=== PATIENT | male | born 1945 | race Caucasian/White ===

== ENCOUNTER 2017-07-28 07:50 | Day surgery (SDC) | payer OTHER, MEDICARE ==
[2017-07-28] MEDS ORDERED: MIDAZOLAM HCL 2 MG/2 ML SINGLE DOSE VIAL ONE ×2 (09:06)
--- NOTE | 2017-07-28 09:24 | OP ---
Operative Note - Note: Operative Date: 07/28/17 Pre-Operative Diagnosis: Right kidney stone Operation: Right ESWL Findings: 8 mm low renal pole Right Surgeon: Fernando Grullon Anesthesia: Fractional
[2017-07-28] MEDS ORDERED: KETOROLAC TROMETHAMINE 30 MG/1 ML VIAL ONE (09:25)
[2017-07-28] MEDS ORDERED: DEXAMETHASONE SOD PHOSPHATE 4 MG/1 ML VIAL ONE (09:25)
[2017-07-28] MEDS ORDERED: oxyCODONE HCL 5 MG TABLET PO PRN (09:47)
[2017-07-28] MEDS ORDERED: PROMETHAZINE HCL 25 MG/1 ML VIAL IVPB PRN (09:47)
[2017-07-28] MEDS ORDERED: ONDANSETRON 4 MG/2 ML VIAL IVPUSH PRN (09:47)
[2017-07-28] MEDS ORDERED: LACTATED RINGERS SOLUTION 1,000 ML IV SCH (10:00)
[2017-07-28 10:33] VITALS: TEMP 98.6
[2017-07-28 12:39] VITALS: BP 128/74; PULSE 55
--- NOTE | 2017-07-28 21:16 | OP ---
DATE OF OPERATION: 07/28/2017 PREOPERATIVE DIAGNOSIS: Right renal stone. POSTOPERATIVE DIAGNOSIS: Right renal stone. PROCEDURE: Right extracorporeal shock wave lithotripsy. ATTENDING: Mahsa Ambrose MD ANESTHESIA: Fractional. DESCRIPTION OF OPERATION: Patient was brought in the operating room, placed in supine position on the operating room table. Ultrasonography and fluoroscopy were performed. An 8-mm right lower pole stone was identified. At this point, fractional anesthesia was administered as was preoperative antibiotics. Extracorporeal shock wave lithotripsy was then started; 2500 impulses at 20 joules of power were administered to the stone. The patient was noted to have excellent fragmentation of the stone under real-time ultrasonography and fluoroscopy. There were no complications noted. The patient tolerated the procedure very well. MAHSA AMBROSE M.D. /[id number]
== END 2017-07-28 12:30 | disposition home or self-care (01) ==
LOC: JASU-SURG 07:50
PROVIDERS: ATTEND Urology
PROC: 0TF3XZZ Fragmentation in Right Kidney Pelvis, External Approach (ICD-10-PCS; principal; 2017-07-28 09:30)
DX: N20.0 Calculus of kidney (principal)
CPT/HCPCS: 94760

== ENCOUNTER 2017-08-11 08:48 | Day surgery (SDC) | payer OTHER, MEDICARE | END 2017-08-11 12:12 | disposition home or self-care (01) | LOC: JASU-SURG 08:48 | PROC: 0TF4XZZ Fragmentation in Left Kidney Pelvis, External Approach (ICD-10-PCS; principal; 2017-08-11) | DX: N20.0 Calculus of kidney (principal) ==

== ENCOUNTER 2018-11-14 10:50 | Emergency (ER) | payer OTHER, MEDICARE ==
[2018-11-14 10:57] VITALS: BMI 27.8
--- NOTE | 2018-11-14 11:11 | PDOC ---
History of Present Illness - General Chief Complaint: Chest Pain Stated Complaint: CHEST PAIN Time Seen by Provider: 11/14/18 11:10 History Source: Patient Exam Limitations: No Limitations, Language Barrier - History of Present Illness Initial Comments: Demetrius Boyer is a 73 yo M w a pmh of HTN, HLD, BPH s/p TURP, b/l renal stones s/p multiple ESWL procedures who presents to the [facility] ER via private auto with the CC of chest pain for the past 2 days. The patient states the chest pain is left sided and rated 8/10 in intensity. The pain radiates down his left arm and the pain is worsened by physical activity. The patient states the chest pain feels like a heavy and sharp sensation in quality. The pain has stayed relatively constant for the past 2 days. Patient had a cardiac cath in 2011 which showed non-occlusive CAD at that time. Patient states he had a stress test [address] Vela and it was normal. Patient states the pain is also reproducible with palpation or when he moves his left arm vigorously. Patient denies any nausea, vomiting, or diaphoresis. Denies radiation to back. The patient denies recent travel/surgeries/immobility, lower extremity edema, calf pain or tenderness, tobacco use, hormone use, personal or family history of thrombosis. Denies fevers, chills, or infections. Denies shortness of breath , difficulty breathing, or pain worsened upon deep inspiration. PCP: Antony Schneider Elevator Service Mechanic: Marisol Black Urology: Yadi PSH: TURP, ESWL Social Hx: Former smoker, quit 11 years ago Allergies: NKA, NKDA Past History - Past Medical History Allergies/Adverse Reactions: Allergies Allergy/AdvReac Type Severity Reaction Status Date / Time No Known Drug Allergies Allergy Verified 11/14/18 10:51 Home Medications: Ambulatory Orders Amlodipine Besylate 5 mg PO DAILY 03/03/15 Anemia: No Asthma: No Cancer: No Cardiac Disorders: No CVA: No COPD: No CHF: No Dementia: No Diabetes: No GI Disorders: No Disorders: Yes (ENLARGED PROSTATE,STONES) HTN: Yes Hypercholesterolemia: No Liver Disease: No Seizures: No Thyroid Disease: No - Surgical History Abdominal Surgery: Yes (HERNIA REPAIR) Appendectomy: No Cardiac Surgery: No Cholecystectomy: No Lung Surgery: No Neurologic Surgery: No Orthopedic Surgery: No - Suicide/Smoking/Psychosocial Hx Smoking History: Former smoker Have you smoked in the past 12 months: No If you are a former smoker, when did you quit?: 11YRS AGO Information on smoking cessation initiated: No Hx Alcohol Use: No Drug/Substance Use Hx: No Substance Use Type: Alcohol Review of Systems - Review of Systems Able to Perform ROS?: Yes Comments:: CONSTITUTIONAL: Absent: fever, chills, diaphoresis, generalized weakness, malaise, loss of appetite HEENT: Absent: rhinorrhea, nasal congestion, throat pain, throat swelling, difficulty swallowing, mouth swelling, ear pain, eye pain, visual Changes CARDIOVASCULAR: Present: Chest pain Absent: syncope, palpitations, irregular heart rate, lightheadedness, peripheral edema RESPIRATORY: Absent: cough, shortness of breath, dyspnea with exertion, orthopnea, wheezing, stridor, hemoptysis GASTROINTESTINAL: Absent: abdominal pain, abdominal distension, nausea, vomiting, diarrhea, constipation, melena, hematochezia GENITOURINARY: Present: Hesitancy Absent: dysuria, frequency, urgency, hematuria, flank pain, genital pain MUSCULOSKELETAL: Present: Arthralgia Absent: myalgia, joint swelling SKIN: Absent: rash, itching, pallor HEMATOLOGIC/IMMUNOLOGIC: Absent: easy bleeding, easy bruising, lymphadenopathy, frequent infections ENDOCRINE: Absent: unexplained weight gain, unexplained weight loss, heat intolerance, cold intolerance NEUROLOGIC: Absent: headache, focal weakness or paresthesias, dizziness, unsteady gait, seizure, mental status changes, bladder or bowel incontinence PSYCHIATRIC: Absent: anxiety, depression, suicidal or homicidal ideation, hallucinations. *Physical Exam - Vital Signs Last Vital Signs Temp Pulse Resp BP Pulse Ox 98.3 F 66 16 110/63 100 11/14/18 10:51 11/14/18 10:51 11/14/18 10:51 11/14/18 10:51 11/14/18 10:51 - Physical Exam Comments: GENERAL: Well developed, well nourished. Awake and alert. No acute distress. HEENT: Normocephalic, atraumatic. PERRLA, EOMI. No conjunctival pallor. Sclera are non- icteric. Moist mucous membranes. Oropharynx is clear. NECK: Supple. Full ROM. No JVD. No lymphadenopathy. CARDIOVASCULAR: Regular rate and rhythm. No murmurs, rubs, or gallops. Distal pulses are 2+ and symmetric. PULMONARY: No evidence of respiratory distress. Lungs clear to auscultation bilaterally. No wheezing, rales or rhonchi. ABDOMINAL: Soft. Non-tender. Non-distended. No rebound or guarding. No organomegaly. Normoactive bowel sounds. MUSCULOSKELETAL There is bony tenderness at the left costochondral junction. There is left chest pain upon palpation. Normal range of motion at all joints. No bony deformities. No CVA tenderness. EXTREMITIES: No cyanosis. No clubbing. No edema. No calf tenderness. SKIN: Warm and dry. Normal capillary refill. No rashes. No jaundice. NEUROLOGICAL: Alert, awake, appropriate. Cranial nerves 2-12 intact. No deficits to light touch in face, upper extremities and lower extremities. No motor deficits in the in face, upper extremities and lower extremities. Normal speech. Gait is normal without ataxia. PSYCHIATRIC: Cooperative. Good eye contact. Appropriate mood and affect. Heart Score/ECG Review - History History: Moderately suspicious - Electrocardiogram EKG: Normal - Age Age: >/= 65 - Risk Factors Risk Factors Heart Score: Yes Hx Hypercholesterolemia, Yes Hx Hypertension, Yes Smoking History, Yes Positive family hx of cardiac disease Based on the list above the patient has:: >/=3 risk factors or Hx atherosclerotic disease - Troponin Troponin: </= normal limit - Score Heart Score - Total: 5 - ECG Intrepretation Rhythm: Regular Rhythm - [place]: Normal - P and CT Prominent R with upright T in V1 (true posterior FL): No Delta Wave(s) Present: No WPW: No - QRS Increased Voltage: Precordial Leads Poor R Wave Progression: No Q Wave Present: No - ST and T Early Repolarization: No Non Specific ST-T Wave changes: No Flattened T Waves: No Prolonged Q-T Interval: No - ECG Impressions Normal ECG: Yes Non-specific ST Elevation: No Ischemic Changes: No Bradycardia: No Torsades huseyin Pointes: No WPW: No ED Treatment Course - LABORATORY CBC & Chemistry Diagram: 11/14/18 11:37 11/14/18 11:37 - RADIOLOGY Radiograph Interpretation: CXR: Clear lungs, well aerated, an acute process is not seen Impression: No acute pathology Medical Decision Making - Medical Decision Making Demetrius Boyer is a 73 yo M w a pmh of HTN, HLD, BPH s/p TURP, b/l renal stones s/p multiple ESWL procedures who presents to the [facility] ER via private auto with the CC of chest pain for the past 2 days. The patient states the chest pain is left sided and rated 8/10 in intensity. The pain radiates down his left arm and the pain is worsened by physical activity. The patient states the chest pain feels like a heavy and sharp sensation in quality. The pain has stayed relatively constant for the past 2 days. Patient had a cardiac cath in 2011 which showed non-occlusive CAD at that time. Patient states the pain is also reproducible with palpation or when he moves his left arm vigorously. Patient denies any nausea, vomiting, or diaphoresis. Denies radiation to back. The patient denies recent travel/surgeries/immobility, lower extremity edema, calf pain or tenderness, tobacco use, hormone use, personal or family history of thrombosis. Denies fevers, chills, or infections. Denies shortness of breath , difficulty breathing, or pain worsened upon deep inspiration. Vital Signs Temp Pulse Resp BP Pulse Ox 98.3 F 66 16 110/63 100 11/14/18 10:51 11/14/18 10:51 11/14/18 10:51 11/14/18 10:51 11/14/18 10:51 DDx IBNLT: ACS/FL, arrhythmia, angina, pneumothorax, PNA, MSK chest pain/ costochondritis, electrolyte/metabolic disturbance, UTI/Pylo - No suspicion for dissection with normal BP and no radiation to back - Very low suspicion for PE as pain is not pleuritic, no tachypnea or dyspnea, wells score zero, no tachycardia, and clinical situation doesn't support PE. Plan: EKG, labs, urine, CXR, analgesia, cardio consult, re-assess. EKG: NS rate of 64, narrow complexes, normal axis, mild hypertrophy in precordial leads less than 35, no ST elevations or depression, no abnormal TWI, no Q waves, CT-160, QTc - 404. Labs: Normal, no acute abnormalities. 1st trop normal. 2nd Troponin: Negative Urine: Normal, no signs of infection or acute pathology. CXR: No acute pathology. Cardio consult: Spoke with Dr. Elias who is covering for Dr. Black who advised us that this patient's chest pain syndrome does not sound like ACS considering the pain has been constant for 2 days, patient had a recent negative stress test, and considering EKG is normal and 1st troponin is negative the patient can have this chest pain workup performed as an outpatient at Dr. Black's office on Friday if the second troponin is also normal. Re-assessment: Patient feels well in the emergency room and his pain has stopped after NSAID administration. Cardiac - Dr. Elias - came and evaluated the patient. They agree this chest pain is atypical and likely MSK in origin. Plan is to get a 2nd troponin and send home if negative. Disposition: Home with PCP and cardio follow up. *DC/Admit/Observation/Transfer Diagnosis at time of Disposition: Atypical chest pain - Discharge Dispostion Disposition: HOME Condition at time of disposition: Improved Decision to Admit order: No - Referrals Referrals: Antony Schneider MD [Primary Care Provider] - Marisol Black MD [Staff Physician] - Raulito Elias MD [Staff Physician] - - Patient Instructions Printed Discharge Instructions: DI for Atypical Chest Pain, DI for Chest Pain Additional Instructions: You came into the ER with chest pain. We looked at your blood, did a chest x- ray and an EKG and determined that you are not having a heart attack. Drink plenty of fluids. Take anti-inflammatory medications like advil, motrin, ibuprofen, alleve, or naproxen and tylenol as needed for pain control. Please make sure to call up your automatic blocker today or tomorrow and schedule a follow up appointment for Friday or early this week. Please also make sure to call up your primary care doctor and schedule a follow up appointment. Come back to the ER immediately if your pain worsens, you start vomiting, start sweating profusely, or have any other new or worsening concerns. Thank you for coming to the [facility] ER. We hope you feel better soon! Print Language: KHMER - Post Discharge Activity
[2018-11-14] MEDS ORDERED: SODIUM CHLORIDE 1,000 ML IV STA (11:25)
[2018-11-14 11:58] LABS: BASO % 0.4 % (0-2.0); EOS % 2.1 % (0-4.5); HEMATOCRIT 44.7 % (35.4-49); HEMOGLOBIN 15.3 GM/dL (11.7-16.9); LYMPH % 34.1 % (8-40); MCH 30.3 pg (25.7-33.7); MCHC 34.3 g/dl (32.0-35.9); MEAN CELL VOLUME 88.3 fl (80-96); MEAN PLT VOLUME 8.8 fl (7.5-11.1); MONO % 8.8 % (3.8-10.2); NEUT % 54.6 % (42.8-82.8); PLATELET COUNT 250 K/MM3 (134-434); RBC 5.06 M/mm3 (4.00-5.60); RDW 15.1 % (11.9-15.9)
--- NOTE | 2018-11-14 12:00 | PDOC ---
Documentation entered by Sarah Beth Lewis SCRIBE, acting as scribe for April Saini DO. April Saini, DO: This documentation has been prepared by the Debbie mace Mackenzie, SCRIBE, under my direction and personally reviewed by me in its entirety. I confirm that the documentation accurately reflects all work , treatment, procedures, and medical decision making performed by me. Attending Attestation - Resident Resident Name: Hernandez Torres - ED Attending Attestation I have performed the following: I have examined & evaluated the patient, The case was reviewed & discussed with the resident, I agree w/resident's findings & plan - HPI HPI: The patient is a 73 year old male, with a significant PMH of BPH s/p TURP, HLD, and HTN, who presents to the emergency department with 2 days of left sided chest pain. Patient states he was exercising 2 days ago when he felt the discomfort. He states it is similar to the muscular aches he gets after working out however what prompted him to come in today was that his left breast was slightly swollen. Patient endorses that the pain radiates down his left arm. Patient states his last stress test was [address] Vela and normal. The patient denies shortness of breath, headache and dizziness. Denies fever, chills, nausea, vomiting, diarrhea and constipation. Denies dysuria, frequency, urgency and hematuria. Allergies: NKDA Surgical history: multiple ESWL procedures Social history: Quit smoking 11 years ago PCP: Antony Schneider Triage Technician: Katelyn Vela 11/14/18 11:39 - Physicial Exam PE: Constitutional: Awake, alert, oriented. No acute distress. Head: Normocephalic. Atraumatic Eyes: PERRL. EOMI. Conjunctivae are not pale. ENT: Mucous membranes are moist and intact. Posterior pharynx without exudates or erythema. Uvula midline. Neck: Supple. Full ROM. No lymphadenopathy. Cardiovascular: (+)Reproducible anterior chest wall discomfort. Regular rate. Regular rhythm. S1, S2 regular. Distal pulses are 2+ and symmetric. Pulmonary/Chest:No evidence of respiratory distress. Clear to auscultation bilaterally No wheezing, rales or rhonchi. Abdominal: Soft and non-distended. There is no tenderness. No rebound, guarding or rigidity. No organomegaly. No palpable masses. Good bowel sounds. Back: No CVA tenderness. Musculoskeletal: No edema. No cyanosis. No clubbing. Full range of motion in all extremities. No calf tenderness. Radial/pedal pulses are intact and 2+ bilaterally Skin: Skin is warm and dry. No petechiae. No purpura. Neurological: Alert and oriented to person, place, and time. Cranial nerves II -XII are grossly intact. Normal speech. Strength is grossly symmetric. No sensory deficits. Psychiatric: Good eye contact. Normal interaction, affect and behavior. 11/14/18 11:39 - Medical Decision Making 11/14/18 11:43 I, Dr. April Saini, DO, attest that this document has been prepared under my direction and personally reviewed by me in its entirety. I further attest, that it accurately reflects all work, treatment, procedures and medical decision -making performed by me. 11/14/18 11:43 a/p: 73yo male with hx of htn, hld with 2 days of L sided cp that radiates to his L arm -worse with exercise and movement -worse with palpation of the chest wall -hx of nonocclusive cad on cath 2011 cards - dr brice, last saw for a stress test 4m ago, which was normal pt states quit smoking 11 yr ago -will send labs, ekg, cxr -will discuss with dr. brice -will monitor on tele 11/14/18 12:22 cbc reviewed and stable pending chem and trop 11/14/18 12:29 trop neg cxr clear call placed to dr. brice 11/14/18 12:42 resident discussed the case with Dr. Elias who recommends outpt cards eval after 2nd neg trop agrees with the current plan 11/14/18 13:26 the patient has been seen by dr. elias 11/14/18 15:36 repeat trop negative stable for dc to home Heart Score/ECG Review - ECG Intrepretation Comment:: 11/14/18 11:59 sinus at 64, nl axis, nl interval, no acute st/t wave finding
[2018-11-14 12:13] LABS: INR 1.03 (0.83-1.09); PROTHROMBIN TIME (PATIENT) 12.1 SEC (9.7-13.0)
[2018-11-14 12:28] LABS: ALBUMIN 3.8 g/dl (3.4-5.0); BILIRUBIN,TOTAL 0.3 mg/dL (0.2-1); BLOOD UREA NITROGEN 15.8 mg/dL (7-18); CALCIUM 9.1 mg/dL (8.5-10.1); CREATININE 0.9 mg/dL (0.55-1.3); MAGNESIUM 2.3 mg/dL (1.8-2.4); POTASSIUM 3.9 mmol/L (3.5-5.1); TOT PROT 6.8 g/dl (6.4-8.2)
[2018-11-14] MEDS ORDERED: ASPIRIN 81 MG CHEWABLE TABLETS PO ONE (12:29)
[2018-11-14] MEDS ORDERED: ASPIRIN 81 MG CHEWABLE TABLETS ONE (12:39)
--- NOTE | 2018-11-14 12:40 | CON.CARD ---
Consult Consult Specialty:: Cardiology Referred by:: Emergency Medicine Reason for Consultation:: Chest pain - History of Present Illness Chief Complaint: Chest pain History of Present Illness: The patient is a 73 year old male, with a significant PMH of BPH s/p TURP, HLD, and HTN, who presents to the emergency department with 2 days of reproducible left-sided sharp chest pain. Patient states he was exercising 2 days ago when he felt the discomfort. He states it is similar to the muscular aches he gets after working out; however, what prompted him to come in today was that his left breast was slightly swollen. Patient endorses that the pain radiates down his left arm, worse with palpation, turning torso from side to side and lifting arms above head. Patient states his last stress test was [address] Vela and normal. The patient denies shortness of breath, headache, dizziness, true syncope, palpitations, orthopnea, PND or LE edema. Denies fever, chills, nausea, vomiting, diarrhea and constipation. Denies dysuria, frequency, urgency and hematuria. Allergies: NKDA Surgical history: multiple ESWL procedures Social history: Quit smoking 11 years ago PCP: Antony Schneider Weekday Babysitter: Katelyn Vela - History Source History Provided By: Patient Limitations to Obtaining History: No Limitations - Alcohol/Substance Use Hx Alcohol Use: No - Smoking History Smoking history: Former smoker Have you smoked in the past 12 months: No If you are a former smoker, when did you quit?: 11YRS AGO Home Medications - Allergies Allergies/Adverse Reactions: Allergies Allergy/AdvReac Type Severity Reaction Status Date / Time No Known Drug Allergies Allergy Verified 11/14/18 10:51 - Home Medications Home Medications: Ambulatory Orders Amlodipine Besylate 5 mg PO DAILY 03/03/15 Review of Systems - Review of Systems Cardiovascular: reports: Chest Pain Vital Signs: Vital Signs Temperature 98.1 F 11/14/18 10:57 Pulse Rate 65 11/14/18 10:57 Respiratory Rate 11 11/14/18 10:57 Blood Pressure 109/63 11/14/18 10:57 O2 Sat by Pulse Oximetry (%) 97 11/14/18 10:57 Constitutional: Yes: No Distress, Calm Neck: Yes: Supple Respiratory: Yes: Regular, CTA Bilaterally, Other (Left chest wall tenderness) Gastrointestinal: Yes: Normal Bowel Sounds, Soft Cardiovascular: Yes: Regular Rate and Rhythm JVD: No Carotid Bruit: No Heart Sounds: Yes: S1, S2 Edema: No - Other Data Labs, Other Data: CBC, BMP 11/14/18 11:37 11/14/18 11:37 INR, PTT INR 1.03 (0.83-1.09) 11/14/18 11:37 Troponin, BNP 11/14/18 11/14/18 11:37 11:37 Troponin I < 0.02 B-Natriuretic Peptide 10.0 Troponin, BNP 11/14/18 11/14/18 11:37 11:37 Troponin I < 0.02 B-Natriuretic Peptide 10.0 NSR PAC Ejection Fraction %: LVEF > or = 40 % Imaging - Results Chest X-ray: Report Reviewed (NAD) Problem List - Problems (1) Hypertension Code(s): I10 - ESSENTIAL (PRIMARY) HYPERTENSION Qualifiers: Hypertension type: essential hypertension Qualified Code(s): I10 - Essential (primary) hypertension (2) Atypical chest pain Code(s): R07.89 - OTHER CHEST PAIN Assessment/Plan 1. Atypical chest wall pain post exercise c/w musculoskeletal etiology 2. HTN P:1. Topical analgesia as needed with Dimit[place] cream 2. August d/c home with f/u with Dr. Black as outpatient 3. Continue Norvasc 4. Thank you for consultative opportunity
[2018-11-14] MEDS ORDERED: IBUPROFEN 400 MG TABLET (FP) PO ONE ×2 (13:07→13:34)
[2018-11-14 13:08] LABS: PH,URINE 5.5 (5.0-8.0); URINE APPEARANCE CLEAR; URINE BILIRUBIN NEGATIVE (NEGATIVE); URINE COLOR YELLOW; URINE GLUCOSE (UA) NEGATIVE (NEGATIVE); URINE KETONE NEGATIVE (NEGATIVE); URINE LEUK ESTERASE NEGATIVE (NEGATIVE); URINE NITRITE NEGATIVE (NEGATIVE); URINE PROTEIN NEGATIVE (NEGATIVE); URINE UROBILINOGEN 0.2 mg/dL (0.2-1.0)
[2018-11-14] MEDS ORDERED: ACETAMINOPHEN 325 MG TABLET (FP) PO ONE (13:08)
[2018-11-14] MEDS ORDERED: ACETAMINOPHEN 325 MG TABLET (FP) ONE (13:34)
[2018-11-14 15:36] VITALS: BP 125/76; PULSE 45; TEMP 97.3
--- NOTE | 2018-11-15 10:37 | EKG ---
Test Reason : Blood Pressure : / mmHG Vent. Rate : 064 BPM Atrial Rate : 064 BPM P-R Int : 160 ms QRS Dur : 114 ms QT Int : 392 ms P-R-T Axes : 051 017 062 degrees QTc Int : 404 ms SINUS RHYTHM WITH PREMATURE ATRIAL COMPLEXES IN A PATTERN OF BIGEMINY OTHERWISE NORMAL ECG WHEN COMPARED WITH ECG OF 19-JUL-2008 17:42, PREMATURE ATRIAL COMPLEXES ARE NOW PRESENT Confirmed by SARY MORGAN MD ([id number]) on 11/15/2018 10:36:50 AM Referred By: Confirmed By:SARY MORGAN MD
== END 2018-11-14 15:35 | disposition home or self-care (01) ==
LOC: JER 10:50
PROC: 3E0337Z Introduction of Electrolytic and Water Balance Substance into Peripheral Vein, Percutaneous Approach (ICD-10-PCS; principal; 2018-11-14)
DX: R07.89 Other chest pain (principal); I10 Essential (primary) hypertension
CPT/HCPCS: 36415; 71046-TC-FY; 80053; 81003; 82550; 82553; 83735; 83880; 84484; 85025; 85610; 87086; 93005; 93010; 96360; 99284-25; J7030

== ENCOUNTER 2018-11-21 09:52 | Emergency (ER) | payer OTHER, MEDICARE ==
[2018-11-21 09:59] VITALS: BMI 27.6
[2018-11-21 10:30] VITALS: BP 115/68; PULSE 66; TEMP 98.8
--- NOTE | 2018-11-21 10:36 | PDOC ---
History of Present Illness - General Chief Complaint: Hematuria Stated Complaint: HEMATURIA Time Seen by Provider: 11/21/18 10:34 History Source: Patient Exam Limitations: No Limitations - History of Present Illness Initial Comments: Pt is a 73 yo M, with PMH of HTN, HLD, BPH (s/p TURP), and b/l renal stones (s/ p ESWL), who presents with painless hematuria that has been consistent over the past few weeks. Pt had a renal US done 11/05 which showed no hydronephrosis and no masses in the bladder. Pt states he saw Dr. Grullon ([facility]) last week and was told per pt "everything was fine". Pt continues to deny pain, dysuria, or frequency, but is bothered by the bleeding. Pt denies any recent fevers/chills, headache, vision changes, syncope, chest pain, palpitations, SOB, nausea/ vomiting, abdominal pain, diarrhea/constipation, or leg swelling. Allergies: NKDA PCP: Wyatt SWANSON: Yadi Social: Pt denies any cigarette, alcohol, or drug use. Pt denies any recent travel or sick contacts. Surgical: , as above. Family: no relevant history. 11/21/18 12:44 Past History - Travel Traveled outside of the country in the last 30 days: No Close contact w/someone who was outside of country & ill: No - Past Medical History Allergies/Adverse Reactions: Allergies Allergy/AdvReac Type Severity Reaction Status Date / Time No Known Drug Allergies Allergy Verified 11/21/18 09:59 Home Medications: Ambulatory Orders Amlodipine Besylate 5 mg PO DAILY 03/03/15 Anemia: No Asthma: No Cancer: No Cardiac Disorders: No CVA: No COPD: No CHF: No Dementia: No Diabetes: No GI Disorders: No Disorders: Yes (ENLARGED PROSTATE,STONES) HTN: Yes Hypercholesterolemia: Yes Liver Disease: No Seizures: No Thyroid Disease: No - Surgical History Abdominal Surgery: Yes (HERNIA REPAIR) Appendectomy: No Cardiac Surgery: No Cholecystectomy: No Lung Surgery: No Neurologic Surgery: No Orthopedic Surgery: No - Suicide/Smoking/Psychosocial Hx Smoking History: Never smoked Have you smoked in the past 12 months: No If you are a former smoker, when did you quit?: 11YRS AGO Hx Alcohol Use: No Drug/Substance Use Hx: No Substance Use Type: Alcohol Abd/GI Specific PMHX - Complaint Specific PMHX Colitis: No Diverticulitis: No Gall Bladder Disease: No GERD: No Hepatitis: No Irritable Bowel Synd (IBS): No Pancreatitis: No GI Ulcer Disease: No Review of Systems - Review of Systems Able to Perform ROS?: Yes Is the patient limited Mexican proficient: No Constitutional: Yes: Weight Stable. No: Chills, Diaphoresis, Fever, Malaise, Weakness HEENTM: No: Blurred Vision, Double Vision, Nose Congestion, Throat Pain, Throat Swelling, Difficulty Swallowing Respiratory: No: Cough, Orthopnea, Shortness of Breath Cardiac (ROS): No: Chest Pain, Edema, Irregular Heart Rate, Lightheadedness, Palpitations, Syncope, Chest Tightness ABD/GI: No: Constipated, Diarrhea, Nausea, Poor Appetite, Poor Fluid Intake, Vomiting, Abdominal cramping : Yes: See HPI, Hematuria. No: Burning, Dysuria, Discharge, Frequency, Flank Pain, Incontinence, Pain, Urgency, Testicular Pain Musculoskeletal: No: Back Pain, Joint Pain Integumentary: No: Rash Neurological: No: Headache, Numbness, Weakness, Unsteady Gait, Dizziness Psychiatric: No: Sleep Pattern Change, Change in Appetite Endocrine: No: Increased Urine, Change in Weight Hematologic/Lymphatic: No: Anemia, Blood Clots, Easy Bleeding, Easy Bruising *Physical Exam - Vital Signs Last Vital Signs Temp Pulse Resp BP Pulse Ox 98.8 F 66 18 115/68 96 11/21/18 10:29 11/21/18 10:29 11/21/18 09:56 11/21/18 10:29 11/21/18 10:29 - Physical Exam Comments: Vitals stable, pt afebrile. Pt in NAD, normal body habitus. Pt alert and oriented x3. case maker generally intact, muscular strength and sensation intact. No midline spinal tenderness, step-offs, or crepitus. Head normocephalic, atraumatic. Eyes PERRLA, EOMI. Oropharynx without erythema or exudates, no LAD b/l. No nasal congestion, hearing intact. Clear heart sounds, S1/S2, no JVD, b/l pedal edema, or heart murmur. Clear lung sounds, no respiratory distress, wheezes, crackles, or accessory muscle use. No abdominal or CVA tenderness to palpation, no rebound, no guarding. Abdomen soft, non-distended, and with normoactive bowel sounds. Skin without jaundice or rash. 11/21/18 12:56 ED Treatment Course - LABORATORY CBC & Chemistry Diagram: 11/21/18 10:55 11/21/18 10:55 Medical Decision Making - Medical Decision Making Pt was seen at bedside, also will be seen by attending Dr. Lepe. Pt presenting with painless hematuria that has been unchanged for the past few weeks. Will evaluate with labs to check for renal function, anemia, urine infection, and will do bedside US to look for hydronephrosis or bladder masses. Pt will need outpatient follow-up with urology for further evaluation of bleeding (likely cystoscopy). Pt denies any pain control at this time. Will continue to reassess pt and monitor for symptomatic improvement. Urine at bedside appears light yellow with no evidence of blood at this time. Bedside US showed no evidence of hydronephrosis or bladder masses. CBC and CMP WNL -- no ELENA or decreased H/H from baseline. UA negative for WBC or RBC. PT can follow-up with (Dr. Grullon). Strict return precautions provided with pt understanding. 11/21/18 16:50 *DC/Admit/Observation/Transfer Diagnosis at time of Disposition: History of lithotripsy Hematuria Qualifiers: Hematuria type: unspecified type Qualified Code(s): R31.9 - Hematuria, unspecified BPH (benign prostatic hyperplasia) Qualifiers: Lower urinary tract symptom presence: symptoms absent Qualified Code(s): N40.0 - Benign prostatic hyperplasia without lower urinary tract symptoms - Discharge Dispostion Disposition: HOME Condition at time of disposition: Good Decision to Admit order: No - Referrals Referrals: Antony Schneider MD [Primary Care Provider] - Fernando Grullon MD [Staff Physician] - - Patient Instructions Printed Discharge Instructions: DI for Hematuria Additional Instructions: You were seen in the ER today for blood in your urine. The results of your labs and imaging today were normal. Please follow-up with your primary care doctor and urology (Dr. Grullon) within 1-2 days to discuss your visit and make sure your symptoms have improved. Please return to the ER if you have any worsening pain or bleeding, development of fevers or chills, loss of consciousness, inability to tolerate food or fluids, or any other concerns. Print Language: GRENADIAN - Post Discharge Activity
[2018-11-21 11:18] LABS: BASO % 0.6 % (0-2.0); EOS % 2.9 % (0-4.5); HEMATOCRIT 44.5 % (35.4-49); HEMOGLOBIN 14.9 GM/dL (11.7-16.9); LYMPH % 32.8 % (8-40); MCH 29.7 pg (25.7-33.7); MCHC 33.5 g/dl (32.0-35.9); MEAN CELL VOLUME 88.7 fl (80-96); MEAN PLT VOLUME 8.8 fl (7.5-11.1); MONO % 10.3 % (3.8-10.2); NEUT % 53.4 % (42.8-82.8); PLATELET COUNT 225 K/MM3 (134-434); RBC 5.01 M/mm3 (4.00-5.60); RDW 15.3 % (11.9-15.9); WHITE BLOOD COUNT 6.7 K/mm3 (4.0-10.0)
[2018-11-21 11:27] LABS: PH,URINE 8.5 (5.0-8.0); URINE APPEARANCE CLEAR; URINE BILIRUBIN NEGATIVE (NEGATIVE); URINE COLOR YELLOW; URINE GLUCOSE (UA) NEGATIVE (NEGATIVE); URINE KETONE NEGATIVE (NEGATIVE); URINE LEUK ESTERASE NEGATIVE (NEGATIVE); URINE NITRITE NEGATIVE (NEGATIVE); URINE PROTEIN NEGATIVE (NEGATIVE)
[2018-11-21 11:39] LABS: ALBUMIN 3.6 g/dl (3.4-5.0); BILIRUBIN,TOTAL 0.5 mg/dL (0.2-1); BLOOD UREA NITROGEN 13.6 mg/dL (7-18); CALCIUM 8.9 mg/dL (8.5-10.1); POTASSIUM 3.8 mmol/L (3.5-5.1); TOT PROT 6.4 g/dl (6.4-8.2)
--- NOTE | 2018-11-21 14:10 | PDOC ---
Documentation entered by Antonieta Pantoja SCRIBE, acting as scribe for Ijeoma Lepe MD. Ijeoma Lepe MD: This documentation has been prepared by the scribe, Antonieta Pantoja SCRIBE, under my direction and personally reviewed by me in its entirety. I confirm that the documentation accurately reflects all work, treatment, procedures, and medical decision making performed by me. Attending Attestation - Resident Resident Name: MoMelida - HPI HPI: 11/21/18 11:48 The patient is a 73 year old male with a past medical history significant for HTN, HLD, BPH s/p TURP, hx of stone s/p multiple shock waves (by Dr. Grullon) presents to the emergency department with hematuria. The patient reports hes been having intermittent episodes of light red colored hematuria with clots passing. Denies urinary retention, fever, chills, nausea, vomiting. - Physicial Exam PE: 11/21/18 11:53 GENERAL: Awake, alert, and fully oriented, in no acute distress ABDOMEN: Soft, nontender, nondistended. - Medical Decision Making 11/21/18 14:08 pt presents to the ED complaining of painless hematuria. Currently asymptomatic and urine is clear. Followed by urology. UA checked to rule out infection. Will discharge home with instructions to follow up with urology. 11/21/18 14:09
== END 2018-11-21 12:12 | disposition home or self-care (01) ==
LOC: JER 09:52
PROC: BT4JZZZ Ultrasonography of Kidneys and Bladder (ICD-10-PCS; principal; 2018-11-21)
DX: R31.9 Hematuria, unspecified (principal); N40.0 Benign prostatic hyperplasia without lower urinary tract symptoms; Z87.440 Personal history of urinary (tract) infections; I10 Essential (primary) hypertension; E78.5 Hyperlipidemia, unspecified
CPT/HCPCS: 36415; 76775; 80053; 81003; 85025; 87086; 99283-25

== ENCOUNTER 2023-07-31 09:44 | Emergency (ER) | payer OTHER, MEDICARE ==
[2023-07-31 10:03] VITALS: BP 152/83; PULSE 84; RESP 16; TEMP 98; BMI 18.2
[2023-07-31 10:45] LABS: THROAT:GRP A STREP NOT DETECTED (NOTDETECTED)
[2023-07-31] MEDS: MAG HYDROX/ALH/SMC/DPHA/LIDO 240 ML MOUTHWASH MM SCH (11:18)
== END 2023-07-31 11:19 | disposition home or self-care (01) ==
LOC: JERFT 09:44
DX: J02.9 Acute pharyngitis, unspecified (principal); J10.1 Influenza due to other identified influenza virus with other respiratory manifestations; J39.8 Other specified diseases of upper respiratory tract; Z20.822 Contact with and (suspected) exposure to COVID-19
CPT/HCPCS: 0241U-QW; 87651; 93005; 93010; 99284-25